=== PATIENT | female | born 1975 | race African-American/Black ===

== ENCOUNTER 2020-04-11 17:28 | Outpatient (CLI) | payer OTHER, SELFPAY ==
--- NOTE | ~2020-04-11 | MM_ITS ---
EXAMINATION: MM screening [facility] w sung HISTORY: Screening TECHNIQUE: Craniocaudal and mediolateral oblique 3-D tomosynthesis images were obtained and synthetic 2-D images were generated. CAD analysis was submitted and interpreted. COMPARISON: Comparison to multiple prior studies sequentially, with oldest reviewed study dated 01/20. BREAST PARENCHYMAL COMPOSITION: The breasts are heterogeneously dense, which may obscure small masses . FINDINGS: There is no evidence of suspicious mass, calcification, or architectural distortion to sugg est malignancy in either breast. There has been no suspicious interval change. IMPRESSION: 1. No mammographic evidence of malignancy. 2. Recommend routine screening mammography in one year. BI-RADS Category 1: Negative Reviewed, dictated and finalized at location A. GED SERVICES CONSULTANT
== END 2020-04-11 17:29 | disposition home or self-care (01) ==
PROVIDERS: PCP Internal Medicine; Visit Provider Obstetrics & Gynecology
DX: Z12.31 Encounter for screening mammogram for malignant neoplasm of breast (principal)
CPT/HCPCS: 77063; 77067

== ENCOUNTER 2021-11-13 15:06 | Outpatient (CLI) | payer OTHER, SELFPAY ==
--- NOTE | ~2021-11-13 | MM_ITS ---
EXAMINATION: MM screening [facility] BI w sung HISTORY: Screening mammogram TECHNIQUE: Craniocaudal and mediolateral oblique 3-D tomosynthesis images were obtained and synthetic 2-D images were generated. CAD analysis was submitted and interpreted. COMPARISON: 04/11/2020, 01/24/2019, 01/20/2018 BREAST PARENCHYMAL COMPOSITION: There are scattered areas of fibroglandular density. FINDINGS: There is no suspicious mass, calcification, or architectural distortion to suggest malignan cy in either breast. There has been no suspicious interval change. IMPRESSION: 1. No mammographic evidence of malignancy. 2. Recommend routine screening mammography in one year. BI-RADS Category 1: Negative Reviewed, dictated and finalized at location A.
== END 2021-11-13 15:07 | disposition home or self-care (01) ==
PROVIDERS: PCP Internal Medicine; Visit Provider Obstetrics & Gynecology
DX: Z12.31 Encounter for screening mammogram for malignant neoplasm of breast (principal)
CPT/HCPCS: 77063; 77067

== ENCOUNTER 2022-06-16 16:41 | Outpatient (CLI) | payer OTHER, SELFPAY ==
--- NOTE | ~2022-06-16 | XR_ITS ---
EXAMINATION: XR thoracic spine 3V DATE: 06/16/2022 18:10 INDICATION: Chronic back pain TECHNIQUE: AP, lateral and lateral swimmer's views of the thoracic spine were obtained. COMPARISON: None. FINDINGS: There are 11 thoracic type vertebral bodies. Bone alignment is normal. There is no fracture . The vertebral body heights are maintained. There is mild loss of intervertebral disc space height i n the midthoracic spine. Small degenerative osteophytes project from the anterior endplates of multip le vertebral bodies. IMPRESSION: 1. Mild thoracic spondylosis without acute osseous findings. Reviewed, dictated and finalized at location B. DIENE CONVERTER HELPER
--- NOTE | ~2022-06-16 | XR_ITS ---
EXAMINATION:XR cervical spine 4-5V DATE: 06/16/2022 18:10 INDICATION: Neck pain TECHNIQUE: AP, lateral, lateral swimmers and odontoid views of the cervical spine are provided. COMPARISON: None FINDINGS: Alignment is normal. The odontoid is intact. No fracture is identified. Vertebral body heig hts and disk spaces are normal. Prevertebral soft tissues are normal. Small degenerative osteophytes project from the anterior endplates of multiple vertebral bodies. IMPRESSION: 1. Mild cervical spondylosis without acute findings. Reviewed, dictated and finalized at location B. INSPECTOR
--- NOTE | ~2022-06-16 | DEXA_ITS ---
Bone Density Report Name: MARLEE SKELTON Age: 46 Sex: Female Ethnicity: White Date of : 1975 Indication: postmenopausal; inflammatory bowel disease; history of glucocorticoids; asthma or emphysema; hysterectomy; secondary osteoporosis; Referring Provider: UNKNOWN, UNKNOWN Study: Bone densitometry was performed. Exam Date: June 16, 2022 Accession number: [id number] Bone Density: Region BMD T-score Z-score Classification AP Spine(L1-L4) 0.948 -0.9 -0.5 Normal Femoral Neck (Left) 0.761 -0.8 -0.4 Normal Total Hip (Left) 0.857 -0.7 -0.4 Normal Femoral Neck (Right) 0.806 -0.4 0.0 Normal Total Hip (Right) 0.893 -0.4 -0.1 Normal Total Hip Mean 0.875 -0.6 -0.3 Normal World Health Organization criteria for BMD impression classify patients as: Normal (T-score at or above -1.0), Osteopenia (T-score between -1.0 and -2.5), or Osteoporosis (T-score at or below -2.5). 10-year Fracture Risk: FRAX not reported because: All T-scores for Spine Total, Hip Total, Femoral Neck at or above -1.0 Clinical Information Provided by Patient: Has taken Glucocorticoids Has secondary osteoporosis Has used the following medications: Vitamin D, Calcium Has the following medical conditions: Asthma or Emphysema, Inflammatory bowel diseases, Hysterectomy Patient maximum height was 69.5 Menopause Age: 44 Onset of menses at age 13 Number of children 0 Impression: The patient has normal bone mass. The patient has risk factors, including: history of glucocorticoid therapy. Discussion: BONE DENSITY IS ABOVE THE MINIMUM DESIRABLE LEVEL AT ALL SKELETAL SITES TESTED. This patient?s bone mineral density is above the minimum desirable level (T-score -1.0 or better) at all sites measured. The patient should follow a healthful lifestyle (good nutrition with adequate calcium and vitamin D, and appropriate weight-bearing exercise). Follow-Up: Consider repeating this study in 5 years or sooner if there is some new clinical indication. Reported by: LEANDER on 06/16/2022 5:22:00 PM. Reviewed, dictated and finalized at location AGraham NIETO
--- NOTE | ~2022-06-16 | XR_ITS ---
EXAMINATION: XR lumbar spine min 4V DATE: 06/16/2022 18:10 INDICATION: Low back pain TECHNIQUE: Anteroposterior, lateral, and bilateral oblique views of the lumbar spine, and cone-down l ateral view of the lumbosacral junction were obtained. COMPARISON: None. FINDINGS: Bone alignment is normal. There is no fracture. The vertebral body heights are maintained. There is mild loss of intervertebral disc space height in the lower lumbar spine. Small degenerative osteophytes project from the anterior endplates of multiple vertebral bodies. There is mild facet carli nt osteoarthritis of the lower lumbar spine. An ostomy is noted in the right mid abdomen. IMPRESSION: 1. Mild lumbar spondylosis without acute findings. Reviewed, dictated and finalized at location B. ING SAW OPERATOR
== END 2022-06-16 16:42 | disposition home or self-care (01) ==
PROVIDERS: PCP Internal Medicine
DX: Z79.899 Other long term (current) drug therapy (principal); M89.8X9 Other specified disorders of bone, unspecified site; M47.894 Other spondylosis, thoracic region; M47.896 Other spondylosis, lumbar region; M47.892 Other spondylosis, cervical region
CPT/HCPCS: 72050; 72072; 72110; 77080

== ENCOUNTER 2024-08-31 15:33 | Outpatient (CLI) | payer OTHER, SELFPAY ==
--- NOTE | ~2024-08-31 | MM_ITS ---
EXAMINATION: MM screening bibiana BI w sung HISTORY: Screening TECHNIQUE: Craniocaudal and mediolateral oblique 3-D tomosynthesis images were obtained and synthetic 2-D images were generated. CAD analysis was submitted and interpreted. COMPARISON: 11/13/2021 and dating back to 01/20/2018 BREAST PARENCHYMAL COMPOSITION: There are scattered areas of fibroglandular density. FINDINGS: Punctate calcifications are detected bilaterally, stable and benign in appearance. Redemonstration of a well-circumscribed asymmetry within the upper outer right breast, stable and fuad ign in appearance. Stable parenchymal pattern without suspicious microcalcifications, architectural distortion, discrete masses or significant additional asymmetry. IMPRESSION: 1. No mammographic evidence of malignancy. 2. Recommend routine screening mammography in one year. BI-RADS Category 2: Benign finding(s). Reviewed, dictated and finalized at location A.
--- OUTSIDE RECORDS SUMMARY | 2024-08-31 16:17 | XMS_ITS | Clinical Summary ---
Author Organization [facility] Address [address] [place] [address] Care Team Providers Care Hoop Coiling Machine Operator Name Role Phone Enrique Muhammad MD Primary Care Provider [phone] Allergies Active Allergy Reactions Criticality Noted Date Comments Iodinated Contrast Media Hives 11/03/2017 Medications ondansetron 4 MG disintegrating tablet Take 4 mg by mouth every 8 (eight) hours as needed for Nausea. Active dicyclomine 10 MG capsule Take 10 mg by mouth 4 (four) times daily before meals and nightly. Active vitamin D3, cholecalciferol, (CHOLECALCIFEROL) 400 units tablet Take 400 Units by mouth daily. Active albuterol sulfate HFA 108 (90 Base) MCG/ACT inhaler Inhale 2 puffs into the lungs every 6 (six) hours as needed for Wheezing. Active ferrous sulfate, 65 mg elemental, 325 (65 FE) MG tablet Take 325 mg by mouth 2 (two) times daily. Active norethindrone 5 MG tablet Take 5 mg by mouth daily. Active calcium carb-cholecalcifero l 600-400 MG-UNIT Tab tablet 1 tablet daily. Active potassium chloride 10 MEQ Tab CR tablet Take 20 mEq by mouth daily. Active metoprolol succinate 25 MG 24 hr tablet Take 25 mg by mouth daily. Active acetaminophen 325 MG tablet Take by mouth every 4 (four) hours as needed for Pain. Active Active Problems Problem Noted Date Diagnosed Date Crohn disease ([facility]) 11/02/2017 Social History Tobacco Use Types Packs/Day Years Used Date Smoking Tobacco: Never Smokeless Tobacco: Never Comments Unknown Sex and Gender Information Value Date Recorded Sex Assigned at Not on file Legal Sex Female 8:44 AM CDT Gender Identity Not on file Sexual Orientation Not on file Last Filed Vital Signs Vital Sign Reading Time Taken Comments Blood Pressure 123/85 12/28/2017 11:00 AM CDT Pulse 67 12/28/2017 11:00 AM CDT Temperature 37.1 C (98.8 F) 12/28/2017 8:51 AM CDT Respiratory Rate 18 12/28/2017 11:00 AM CDT Oxygen Saturation 100% 12/28/2017 11:00 AM CDT Inhaled Oxygen Concentration - - Weight 88 kg (194 lb) 12/28/2017 8:51 AM CDT Height 175.3 cm (5' 9 ) 12/28/2017 8:51 AM CDT Body Mass Index 28.65 12/28/2017 8:51 AM CDT Plan of Treatment Health Maintenance Due Date Last Done Comments Cervical Cancer Screening Pa p Smear (Age 30 to 64) Every 3 Years 1975 Colorectal Cancer Screening Colonoscopy (10 Years) 1975 Annual Physical 1980 Hepatitis C 10/19/1995 DTaP, Tdap and Td Vaccines ( 1 - Tdap) 1996 Hepatitis B Vaccines (1 of 3 - 19+ 3-dose series) 1996 Cervical Cancer Screening Pa p with HPV Testing (Age 30 to 64) Every 5 Years 10/19/2007 Cervical Cancer Screening with HPV 10/19/2007 Mammogram Screening 2017 COVID-19 Vaccine (2023-2 5 season) 2024 Influenza Adult (#1) 2024 Pneumococcal Vaccine: Pediat rics (0 to 5 Years) and At-Risk Patients (6 to 64 Years) Aged Out 11/03/2017 No longer eligi ble based on patient's age to complete this topic Meningococcal B Vaccine Aged Out No l onger eligible based on patient's age to complete this topic Meningococcal Vaccine Aged Out No ziggy suresh eligible based on patient's age to complete this topic RSV Immunizations Under 20 Months Aged Out No longer eligible based on patient's age to complete this topic [facility] Care Teams Hoop Coiling Machine Operator Relationship Specialty Start Date End Date Enrique Muhammad MD [address] [place] [address] PCP - General INTERNAL MEDICINE 11/03/17
--- OUTSIDE RECORDS SUMMARY | 2024-08-31 16:17 | XMS_ITS | Encounter Summary ---
Author Organization [facility] Address [address] [place] [address] Care Team Providers Care Retail Event Coordinator Name Role Phone Ijeoma Faria James MULTIFOCAL BUTTON GRINDER-COMMUNITY COORDINATOR FOR [employer] Primary Care Provider Jethro Curiel MD Unavailable Kelly Ramírez MD Unavailable [phone] Encounter Details Date Type Department Care Team (Latest Contact Info) Description 08/30/2024 Travel Social History Tobacco Use Types Packs/Day Years Used Date Smoking Tobacco: Never Smokeless Tobacco: Never Alcohol Use Standard Drinks/Week Comments No 0 (1 standard drink = 0.6 oz pur e alcohol) AUDIT-C Answer Date Recorded Q1: How often do you have a drink containing alcohol? Never 01/19/2024 Q2: How many drinks containi ng alcohol do you have on a typical day when you are drinking? Patient does not drink Q3: How often do you have si x or more drinks on one occasion? Never 01/19/2024 Overall Financial Resource Strain (CARDIA) Answe r Date Recorded How hard is it for you to pa y for the very basics like food, housing, medical care, and heating? Not hard at all 01/19/2024 PHQ-2 Answer Date Recorded Patient Health Questionnaire-2 Score 0 05/05/2024 [facility] - Occupational Stress Questionnaire Answer Date Recorded Do you feel stress - tense, restless, nervous, or anxious, or unable to sleep at night because your mind is troubled all the time - these days? Not at all 01/19/2024 Hunger Vital Sign Answer Date Recorded Within the past 12 months, y ou worried that your food would run out before you got the money to buy more. Never true 01/19/20 24 Within the past 12 months, t he food you bought just didn't last and you didn't have money to get more. Never true 01/19/2024 PRAPARE - Transportation Answer Date Re corded In the past 12 months, has l ack of transportation kept you from medical appointments or from getting medications? No 01/05 In the past 12 months, has l ack of transportation kept you from meetings, work, or from getting things needed for daily living? No 01/19/2024 Housing Stability Vital Sign Answer Alcides e Recorded In the last 12 months, was t here a time when you were not able to pay the mortgage or rent on time? No 01/19/2024 In the last 12 months, how many places have you lived? 1 01/19/2024 In the last 12 months, was t here a time when you did not have a steady place to sleep or slept in a fci (including now)? No 01/19/2024 Sex and Gender Information Value Date Recorded Sex Assigned at Not on file Gender Identity Not on file Sexual Orientation Not on file documented as of this encounter Functional Status Functional Status Response Date of Assess ment Is person deaf or have serious hearing difficult y? No 01/19/2024 Is person blind or have serious difficulty seein g? No 01/19/2024 Does person have serious dif ficulty walking/climbing stairs? No 01/19/2024 Does person have difficulty dressing/bathing? No 01/19/2024 Does person have difficulty doing errands alone? No 01/19/2024 Cognitive Status Response Date of Assessm ent Does person have difficulty concentrating/remembering/making decisions? No 01/19/2024 documented as of this encounter Plan of Treatment Upcoming Encounters Date Type Department Care Team (Late st Contact Info) Description 09/01/2024 3:00 PM CDT Office Visit Transitional Care at [address] [address] 09/07/2024 9:00 AM CDT Office Visit [facility] - Internal Medicine [address] [place] [phone] Ijeoma Faria, MULTIFOCAL BUTTON GRINDER-COMMUNITY COORDINATOR FOR [employer] [address] [facility] [address] [place] [phone] 11/16/2024 3:30 PM CDT Office Visit [facility] - GI [address] [facility] [place] [place] [phone] Prasanth Diaz MD [address] [place] [phone] 04/04/2025 11:30 AM CDT Office Visit [facility] - Urology [address] [place] [phone] Hemalatha Golden, MULTIFOCAL BUTTON GRINDER-COMMUNITY COORDINATOR [employer] [address] [place] [address] [place] [address] documented as of this encounter Goals Goal Patient Goal Type Associated Problems Recent Progress Patient-Stated? Author Safety General On track( 2:45 PM CHAUFFEUR MOTORBUS) Leia Dodge, MEAGAN Note: Expected end date: Ongoing Interventions: Your nurse will assess your risk for falls/injury each visit Use appropriate and safe transfer methods Medication Management General On track( 2:45 PM CHAUFFEUR MOTORBUS) Leia Dodge, MEAGAN Note: Expected end date: Ongoing Interventions: Take all medications as prescribed Let your doctor know right away about any changes in your medications documented as of this encounter Visit Diagnoses Not on filedocumented in this encounter Care Teams Retail Event Coordinator Relationship Specialty Start Date End Date Ijeoma Faria, MULTIFOCAL BUTTON GRINDER-COMMUNITY COORDINATOR [employer] [address] [facility] [address] [place] [address] PCP - General Nurse Practitioner 08/04/22 Jethro Curiel MD [address] [facility] [address] [place] [address] Obstetrics and Gynecology 03/09/24 Kelly Ramírez MD [address] [facility] [address] [place] [address] Surgeon General Surgery 03/09/24 documented as of this encounter
--- OUTSIDE RECORDS SUMMARY | 2024-08-31 16:17 | XMS_ITS | Encounter Summary ---
Author Organization [facility] Address [address] [place] [address] Care Team Providers Care Network Operations Center Engineer Name Role Phone Enrique Muhammad MD Primary Care Provider Unava Ijeoma Covarrubias TRAUMA DIRECTOR-PAVING CONTRACTOR Primary Care Provider Jethro Curiel MD Unavailable Kelly Ramírez MD Unavailable Encounter Details Date Type Department Care Team (Late Contact Info) Description 01/09/2021 Telephone [facility] General Surgery [address] [place] [address] Kelly Ramírez MD [address] [address] Social History Tobacco Use Types Packs/Day Years Used Date Smoking Tobacco: Never Smokeless Tobacco: Never Alcohol Use Standard Drinks/Week Comments No 0 (1 standard drink = 0.6 oz pur e alcohol) Sex and Gender Information Value Date Recorded Sex Assigned at Not on file Gender Identity Not on file Sexual Orientation Not on file COVID-19 Exposure Response Date Recorded In the last month, have you been in contact with someone who was confirmed or suspected to have Coronavirus / COVID-19? No / Unsure 01/01/2021 9:51 AM CDT documented as of this encounter Plan of Treatment Upcoming Encounters Date Type Department Care Team ([facility] Contact Info) Description 09/01/2024 3:00 PM CDT Office Visit Transitional Care at [facility] [address] [place] [address] 09/07/2024 9:00 AM CDT Office Visit [facility] - Internal Medicine [address] [place] [phone] Ijeoma Faria, TRAUMA DIRECTOR-PAVING CONTRACTOR [address] [facility] [address] [place] [phone] 11/16/2024 3:30 PM CDT Office Visit [facility] - GI [address] [facility] [place] [phone] Prasanth Diaz MD [address] [place] [phone] 04/04/2025 11:30 AM CDT Office Visit [facility] - Urology [address] [place] [phone] Hemalatha Golden, TRAUMA DIRECTOR-PAVING CONTRACTOR [address] [facility] DEPT [place] [address] documented as of this encounter Goals Goal Patient Goal Type Associated Problems Recent Progress Patient-Stated? Author Safety General On track( 024 2:45 PM SNOWMOBILE MECHANIC) Leia Dodge RN Note: Expected end date: Ongoing Interventions: Your nurse will assess your risk for falls/injury each visit Use appropriate and safe transfer methods Medication Management General On track( 024 2:45 PM SNOWMOBILE MECHANIC) Leia Dodge RN Note: Expected end date: Ongoing Interventions: Take all medications as prescribed Let your doctor know right away about any changes in your medications documented as of this encounter Visit Diagnoses Not on filedocumented in this encounter Care Teams Network Operations Center Engineer Relationship Specialty Start Date End Date Enrique Muhammad MD PCP - General 01/20/17 08/03/22 Ijeoma Faria, TRAUMA DIRECTOR-PAVING CONTRACTOR [address] [place] [address] [phone] PCP - General Nurse Practitioner 08/04/22 Jethro Curiel MD [address] [employer] [address] [place] [address] Obstetrics and Gynecology 03/09/24 Kelly Ramírez MD [address] [employer] [facility] [address] [place] [address] Surgeon General Surgery 03/09/24 documented as of this encounter
--- OUTSIDE RECORDS SUMMARY | 2024-08-31 16:17 | XMS_ITS | Clinical Summary ---
Author Organization [facility] Address [address] [place] [address] Care Team Providers Care Optical Manufacturing Technician Name Role Phone GianaIjeoma James DEALER SALES REP-ASSOCIATE [employer] Primary Care Provider Jethro Curiel MD Unavailable Kelly Ramírez MD Unavailable [phone] Source Comments [facility],non-owned Affiliates and Associated Physician Practices is amultiple site organization consisting of ambulatory clinics and hospital sitesin [place], [place], [place] and [place]. This disclosure is being madepursuant to the Care Everywhere program and may not contain all information available regarding this patient. Last updated 18.[facility] Allergies Active Allergy Reactions Criticality Noted Date Comments Contrast-Iodinated Agents For Ct/Other Skin Reactions,Itching High 07/24/2017 Pt had severe hives and itching when given contrast. Pt states she has been premedicated for every scan since that reaction without further incident. sms (CT) Azathioprine Other Medium 08/26/2018 Pancreatitis Povidone Iodine Itching Low 01/03/2017 Tolerated with pretreatment of benedryl on 01/02/17 at OSH. Medications * Be aware that medications may not be up to date on this document. Alwaysverify current medications with the patient. Medication Sig Dispensed Refills Start Date End Date Status acetaminophen (TYLENOL) 325 MG tablet Take 2 (two) tablets by mouth every 4 hours as needed for Fever or Pain Maximum allowable Acetaminophen amount = 4 Grams (4000 mg) / 24 hours. 100 tablet 01/23/2021 Active folic acid (Folvite) 1 MG tabletIndications:I ntestinal malabsorption, unspecified type (HCC),Crohn's disease of colon with complication (HCC),Crohn's disease of large intestine with fistula (HCC) Take 1 (one) tablet by mouth once daily 90 tablet 3 07/19/2023 Active Calcium Carb-Cholecalcifero l (Calcium/Vitamin D) 600-400 MG-UNIT TABS TAKE ONE TABLET BY MOUTH TWICE DAILY FOR VITAMIN DEFICIANCY 60 tablet 11 10/13/2023 Active nortriptyline (Pamelor) 25 MG capsuleIndications: Crohn's disease of large intestine with abscess (HCC),Ulcerative colitis without complications, unspecified location (HCC) TAKE ONE CAPSULE BY MOUTH EVERY NIGHT AT BEDTIME 30 capsule 5 02/03/2024 Active ferrous sulfate (FeroSul) 325 (65 FE) MG tabletIndications:B one pain Take 1 (one) tablet by mouth daily with breakfast 30 tablet 5 02/21/2024 Active pantoprazole EC (Protonix) 40 MG tabletIndications:H eartburn Take 1 (one) tablet by mouth once daily 90 tablet 3 02/21/2024 Active methotrexate 2.5 MG tablet Take 6 (six) tablets by mouth every 7 days 24 tablet 3 03/01/2024 Active albuterol HFA (Proventil; Ventolin; Proair) 108 (90 Base) MCG/ACT inhalerIndications: Mild intermittent asthma without complication ([facility]) Inhale 2 puffs by mouth every 4 hours as needed for shortness of breath or wheezing 18 g 3 03/20/2024 Active atorvastatin (Lipitor) 20 MG tabletIndications:M ixed hyperlipidemia Take 1 (one) tablet by mouth once daily 90 tablet 4 04/05/2024 Active potassium chloride ER (Klor-Con M) 20 MEQ tabletIndications:P ericarditis, unspecified chronicity, unspecified type (HCC) TAKE ONE TABLET BY MOUTH TWICE DAILY EVERY MORNING & EVENING YOU CAN DISSOLVE TABLET IN WATER AND DRINK 60 tablet 5 04/07/2024 Active cyanocobalamin (Vitamin B-12) 1000 MCG tabletIndications:V itamin B12 deficiency Take 1 (one) tablet by mouth every 2 days 45 tablet 5 04/21/2024 Active adalimumab (Humira, 2 Pen,) 40 MG/0.4ML injectionIndication s:Crohn's Disease Inject 0.4 mL subcutaneously every 7 days Reasons: Crohn's Disease 4 kit 6 06/02/2024 Active tamsulosin (Flomax) 0.4 MG capsule Take 1 (one) capsule by mouth once daily At the same time every day after a meal. 90 capsule 4 06/29/2024 Active montelukast (Singulair) 10 MG tablet TAKE ONE TABLET BY MOUTH EVERY NIGHT AT BEDTIME FOR BREATHING 90 tablet 07/10/2024 Active metoprolol tartrate IR (Lopressor) 25 MG tabletIndications:P ericarditis, unspecified chronicity, unspecified type (HCC) TAKE ONE TABLET DAILY FOR BLOOD PRESSURE 30 tablet 1 07/14/2024 Active metoprolol succinate XL 24hr (Toprol XL) 50 MG tablet Take 1 (one) tablet by mouth once daily for blood pressure 08/17/2024 Active Active Problems Problem Noted Date Diagnosed Date Crohn's disease of large intestine with fistula 06/10/2018 Multiple benign melanocytic nevi of upper and lower extremities and trunk 04/15/2018 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 Uncomplicated asthma 09/16/2017 Crohn's disease of large intestine with abscess 05/13/2017 Peritoneal abscess 01/14/2017 Ulcerative colitis without complications 017 Iridocyclitis 01/14/2017 Other specified bacterial ag ents as the cause of diseases classified elsewhere 01/14/2017 Other acute postprocedural pain 01/14/2017 Other female intestinal-genital tract fistulae 0 01/14/2017 Acute embolism and thrombosis of vein 01/06/2017 Clostridium difficile infection 01/04/2017 07/20/2023 Fistula, colovaginal 01/04/2017 07/20/2023 Thrombus 01/04/2017 07/20/2023 Acute pancreatitis without infection or necrosis 01/03/2017 Overview (09/06/2017): History of drug-induced pancreatitis Abscess of intestine 01/03/2017 Disease of pericardium 01/03/2017 Encounters Date Type Department Care Team Description 08/31/2024 Telephone Transitional Care at [address] [phone] Alba Benjamin MA Confirmation 08/30/2024 11:30 AM CDT Office Visit [facility] - Urology [address] [place] [address] Hemalatha Golden, DEALER SALES REP-ASSOCIATE [employer] Incomplete emptying of bladder (Primary Dx) 08/30/2024 Travel 08/25/2024 Telephone Transitional Care at [address] [phone] Alba Benjamin MA Reschedule Appointment 08/25/2024 Travel 08/25/2024 Telephone Transitional Care at [address] [phone] Alba Benjamin MA Reminder Call 08/18/2024 Travel 08/18/2024 Telephone Transitional Care at [address] [phone] Brigitte Adams, supervisor stock ranch 08/18/2024 Orders Only [facility] [address] [facility] [place] [address] Maricel Noriega, MEAGAN Crohn's disease of large intestine with fistula 08/10/2024 12:35 PM SECURITY INTERN - 08/10/2024 11:59 PM SECURITY INTERN Hospital Encounter [facility] MRI [address] [place] [address] Prasanth Diaz MD Discharge Disposition: Home or Self Care 07/13/2024 Refill [facility] - Internal Medicine [facility] [address], [facility] [address] [place] [phone] Ijeoma Faria, DEALER SALES REP-ASSOCIATE [employer] Refill Request 07/10/2024 Refill [facility] - Internal Medicine [facility] [address], [facility] [address] [place] [phone] Ijeoma Faria, DEALER SALES REP-ASSOCIATE [employer] Refill Request 06/29/2024 2:00 PM SECURITY INTERN Office Visit [facility] [address] [place] [address] Hemalatha Golden, DEALER SALES REP-ASSOCIATE [employer] Incomplete emptying of bladder (Primary Dx); Urinary retention; Microscopic hematuria 06/29/2024 Travel 06/08/2024 12:00 PM SECURITY INTERN Office Visit [facility] - General Surgery [address] [place] [address], [place] [address] Kelly Ramírez MD Urinary retention (Primary Dx) 06/08/2024 Travel 06/02/2024 Refill [facility] - GI [address] [facility] [place] [address] Donald Cooley, SALES RECRUITMENT SPECIALIST REFILL from Last 3 Months Immunizations Name Administration Dates Next Due [employer] primary monoval ent 12+ yr 0.3mL Purple cap 04/18/2021,09/06/2020,08/18/2020 DTaP VACCINE IM (6wk-6yrs) 12/22/2018 HEP B VACCINE, ADULT 3 DOSE 12/17/2022, 3,06/11/2022 INFLUENZA VACCINE 04/22/2023 INFLUENZA VACCINE, CELL CULT URE, QUADR. (FLUCELVAX QUADRIVALENT; 6MO+) (CCIIV4) 04/22/2023,04/24/2020 INFLUENZA VACCINE, QUADR. (A FLURIA, FLUZONE QUADRIVALENT; 6MO+) (IIV4) 03/31/2022 INFLUENZA VACCINE, TRIV. (FL UZONE; FLULAVAL; FLUARIX; AFLURIA TRIVALENT; 6MO+), 0.5 ML (IIV3) 03/09/2024 PNEUMOCOCCAL PCV20 CONJ VAC IM 10/22/2022 PNEUMOCOCCAL PPSV23 02/23/2018 Pneumococcal Pcv13 Conj 11/03/2017 Zoster Hzv Vacc Recombinant Inj Im 08/20/2022, Family History Medical History Relation Name Comments None Known Brother 1/2 brother Status: Alive Diabetes Father Status: Alive Cancer - Pancreatic Maternal Aunt Ulcerative Colitis Maternal Aunt Recurren t C Diff; Status: Alive Cancer - Skin, Melanoma Mother Hypertension Mother Seizures Mother Status: Alive Cancer - Breast Paternal Aunt Ulcerative Colitis Sister confined to rectum; Status: Alive Asthma Neg Hx CVA Neg Hx Cancer - Other Neg Hx Cancer - Skin, Non Melanoma Neg Hx Eczema Neg Hx Hemophilia Neg Hx Psoriasis Neg Hx Relation Name Status Comments Brother 1/2 brother Father Maternal Aunt Mother Paternal Aunt Sister Social History Tobacco Use Types Packs/Day Years Used Date Smoking Tobacco: Never Smokeless Tobacco: Never Tobacco Cessation:Counseling Given: No Alcohol Use Standard Drinks/Week Comments No 0 [...] Recorded Patient Health Questionnaire-2 Score 0 05/05/2024 [facility] of Occupat ional Health - Occupational Stress [...] place to sleep or slept in a mcc (including now)? No 01/19/2024 Sex and Gender Information Value Date Recorded Sex Assigned at Not on file Gender Identity Not on file Sexual Orientation Not on file Last Filed Vital Signs Vital Sign Reading Time Taken Comments Blood Pressure 120/81 08/30/2024 11:21 AM CDT Pulse 94 08/30/2024 11:21 AM CDT Temperature 36.6 C (97.9 F) 08/30/2024 11:21 AM CDT Respiratory Rate 17 08/30/2024 11:21 AM CDT Oxygen Saturation 94% 08/30/2024 11:21 AM CDT Inhaled Oxygen Concentration - - Weight 111.1 kg (245 lb) 08/30/2024 11:21 AM CDT Height 175.3 cm (5' 9 ) 08/30/2024 11:21 AM CDT Body Mass Index 36.18 08/30/2024 11:21 AM CDT Plan of Treatment Upcoming Encounters Date Type Department Care Team (Late st Contact Info) Description 09/01/2024 3:00 PM CDT Office Visit Transitional Care at [address] [phone] 09/07/2024 9:00 AM CDT Office Visit [facility] - Internal Medicine [address], [address] [phone] Ijeoma Faria, DEALER SALES REP-ASSOCIATE [employer] [address] [phone] 11/16/2024 3:30 PM CDT Office Visit [facility] - GI [address] [facility] [place] [phone] Prasanth Diaz MD [address] [place] [address] 04/04/2025 11:30 AM CDT Office Visit [facility] - Urology [address] [facility] [address] [place] [address] Hemalatha Golden, DEALER SALES REP-ASSOCIATE [employer] [address] [facility] [place] [address] Health Maintenance Due Date Last Done Comments MAMMOGRAM 1977 HEPATITIS C SCREENING 10/14/1995 COVID-19 VACCINE ( season) 2024 05/07/2023, 03/18/2022, 04/18/2021, Additional history exists DEPRESSION SCREENING 06/07/2024 11/17/2023, 06/11/2022, 02/05/2022 SCREENING FOR DIABETES 05/05/2027 , 03/11/2024, 01/23/2024, Additional history exists ZOSTER VACCINE (2 of 2) 10/19/2027 08/20/2022, 06/20 PNEUMOCOCCAL VACCINE (3 of 3 - PCV20 or PCV21) 10/23/2027 10/22/2022, 02/23/2018, 11/03/2017 DTAP/TDAP/TD VACCINES (2 - Tdap) 12/22/2028 12/22/2018 HIV SCREENING Completed 11/25/2020 BONE DENSITY TESTING Completed 06/16/2022 (Done Outside Per Report) HEPATITIS B VACCINE Completed 12/17/2022, 07/09/2022, 06/11/2022 INFLUENZA VACCINE Completed 03/09/2024, , 04/22/2023, Additional history exists HIB VACCINE Aged Out No longer eligi ble based on patient's age to complete this topic HPV VACCINE Aged Out No longer eligi ble based on patient's age to complete this topic MENINGOCOCCAL (Group B) VACCINE SHARED DECISION-MAKING Aged Out No longer eligible based on patient's age to complete this topic MENINGOCOCCAL GROUPS A/C/Y/W VACCINE Aged Out No longer eligible based on patient's age to complete this topic Goals Goal Patient Goal Type Associated Problems Recent Progress Patient-Stated? Author Safety General On track(12/12/2 024 2:45 PM SECURITY INTERN) No Leia Kurtz, RN Note: Expected end date: Ongoing Interventions: Your nurse will assess your risk for falls/injury each visit Use appropriate and safe transfer methods Medication Management General On track( 2:45 PM SECURITY INTERN) No Leia Kurtz, RN Note: Expected end date: Ongoing Interventions: Take all medications as prescribed Let your doctor know right away about any changes in your medications Procedures Procedure Name Priority Date/Time Associated Diagnosis Comments ND MSR PVR U&/BLADD CAPCTY US NON Routine 08/30/2024 11:32 AM CDT Incomplete emptying of bladder MRI ENTEROGRAPHY Routine 08/10/2024 4:17 PM SECURITY INTERN Crohn's disease of large intestine without complication CULTURE URINE Routine 07/06/2024 3:15 PM SECURITY INTERN ND MSR PVR U&/BLADD CAPCTY US NON Routine 06/29/2024 2:25 PM SECURITY INTERN Urinary retention URINALYSIS AUTO - POINT OF CARE (AMB) [facility] Routine 06/29/2024 2:23 PM SECURITY INTERN Urinary retention URINALYSIS W/MICROSCOPIC NO CULTURE 06/29/2024 Incomplete emptying of bladder CULTURE URINE 06/29/2024 Incomplete emptying of bladder COMPREHENSIVE METABOLIC PANEL Routine 05/05/2024 11:38 AM SECURITY INTERN Crohn's disease of large intestine with fistula HIV-1 HIV-2 ANTIBODY + HIV P24 AG PANEL STAT 11/25/2020 5:43 AM CDT from Last 3 Months or Most Recently Relevant to Health Maintenance Results * ND MSR PVR U&/BLADD CAPCTY US NON (08/30/2024 11:32 AM CDT) Narrative Hemalatha Golden, JHON-ASSOCIATE [employer] - 08/30/2024 11:32 AM CDT Hemalatha GoldenJHON-ED 08/30/2024 12:28 PM Bladder Scan performed on 08/30/2024: Results showinml Hemalatha Golden JHON-ASSOCIATE [employer] PROCEDURE/MINOR SURGICAL ORDERABLES * MRI Enterography (08/10/2024 4:17 PM SECURITY INTERN) Anatomical Region Laterality Modality Abdomen Magnetic Resonan ce, Magnetic Resonance 08/11/2024 7:50 AM SECURITY INTERN Impressions 08/11/2024 11:13 AM SECURITY INTERN Impression: 1.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 No imaging signs of active small bowel inflammation. 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 The report was drafted by Alfonso Cruz MD (residential green building designer) I, Ace Hernández MD have personally reviewed and interpreted this examination/study. > Interpreting Provider: Ace Hernández MD on 08/11/2024 11:13 AM Narrative 08/11/2024 11:13 AM SECURITY INTERN PROCEDURE: MRI ENTEROGRAPHY, DATE/TIME OF EXAM: 08/10/2024 4:17 PM, LOCATION [facility] INDICATION: K50.10: Crohn's disease of large intestine without complication (HCC) ADDITIONAL CLINICAL INFORMATION: Ordering Provider Reason For Exam: Crohn's disease, evaluate for small bowel inflammation Technologist Note: Additional: COMPARISON: CT chest abdomen pelvis from 01/20/2021. TECHNIQUE: MRI of the abdomen and pelvis was performed prior to and following the uneventful administration of 20 mL Multihance intravenous gadolinium contrast according to an enterography protocol. The patient drank Citra Select prior to the study to distend the small bowel. Findings: Lower Chest: Normal. Gastrointestinal The patient is status post total proctocolectomy with creation of end ileostomy. 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 Small bowel distention: Satisfactory with intraluminal fluid to the level of the distal bowel. Obstruction: Nondilated without evidence of obstruction. Enhancement: No enhancing lesion of the bowel. Bowel wall: No bowel wall thickening or abnormal enhancement. Terminal ileum: Normal. Other: No bowel fistula, stricture, or abscess. Hepatobiliary system Liver: Normal size with smooth surface contour. No enhancing lesions. Steatosis: There is mild diffuse hepatic steatosis. Spleen: Normal. Splenic vein is occluded. There are peripancreatic collateral veins, similar to prior CT chest abdomen pelvis from 01/20/2021 Gallbladder and bile ducts Gallbladder: Normal. Bile ducts: Nondilated. Retroperitoneum Pancreas: Normal. Adrenals: Normal. Kidneys: Scattered renal cysts bilaterally. Lymph nodes: No lymphadenopathy. Peritoneum: No free intraperitoneal fluid. Pelvic structures: The bladder is distended with fluid and appears normal. Uterus is absent. No free pelvic fluid is identified. Procedure Note Ace Hernández MD - 08/11/2024 PROCEDURE: MRI ENTEROGRAPHY, DATE/TIME OF EXAM: 08/10/2024 4:17 PM, LOCATION [facility] INDICATION: K50.10: Crohn's disease of large intestine without complication (HCC) ADDITIONAL CLINICAL INFORMATION: Ordering Provider Reason For Exam: Crohn's disease, evaluate for small bowel inflammation Technologist Note: Additional: COMPARISON: CT chest abdomen pelvis from 01/20/2021. TECHNIQUE: MRI of the abdomen and pelvis was performed prior to and following the uneventful administration of 20 mL Multihance intravenous gadolinium contrast according to an enterography protocol. The patient drank Citra Select prior to the study to distend the small bowel. Findings: Lower Chest: Normal. Gastrointestinal The patient is status post total proctocolectomy with creation of end ileostomy. 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 Small bowel distention: Satisfactory with intraluminal fluid to thelevel of the distal bowel. Obstruction: Nondilated without evidence of obstruction. Enhancement: No enhancing lesion of the bowel. Bowel wall: No bowel wall thickening or abnormal enhancement. Terminal ileum: Normal. Other: No bowel fistula, stricture, or abscess. Hepatobiliary system Liver: Normal size with smooth surface contour. No enhancing lesions. Steatosis: There is mild diffuse hepatic steatosis. Spleen: Normal. Splenic vein is occluded. There are peripancreatic collateral veins, similar to prior CT chest abdomen pelvis from01/20/2021 Gallbladder and bile ducts Gallbladder: Normal. Bile ducts: Nondilated. Retroperitoneum Pancreas: Normal. Adrenals: Normal. Kidneys: Scattered renal cysts bilaterally. Lymph nodes: No lymphadenopathy. Peritoneum: No free intraperitoneal fluid. Pelvic structures: The bladder is distended with fluid and appears normal. Uterus isabsent. No free pelvic fluid is identified. 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 No imaging signs of active small bowel inflammation. 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 The report was drafted by Alfonso Cruz MD (residential green building designer) I, Ace Hernández MD have personally reviewed and interpreted this examination/study. > Interpreting Provider: Ace Hernández MD on 08/11/2024 11:13 AM Prasanth Diaz MD MR ORDERABLES * CULTURE URINE (07/06/2024 3:15 PM SECURITY INTERN) Only the most recent of2 resultswithin the time period is included. Urine Culture Routine Final report [facility] INSURANCE BILL Comment: Performed at: [address] [place] [id number] Cnc Field Service Engineer: Dario Mchugh PhD, Phone: [phone] Result 1 No growth [facility] INSURANCE BILL 07/06/2024 3:15 PM SECURITY INTERN 07/06/2024 Comment:UR Narrative [facility] INSURANCE BILL - 07/08/2024 6:10 AM SECURITY INTERN Performed at: [address] [place] [id number] C[employer] Field Service Engineer: Dario Mchugh PhD, Phone: [phone] Specimen Comment: A courtesy copy of this report has been sent to [phone] Hemalatha Golden DEALER SALES REP-ASSOCIATE [employer] LAB - MICROBIOL OGY ORDERABLES [facility] INSURANCE BILL [address] [place] [address] * ND MSR PVR U&/BLADD CAPCTY US NON (06/29/2024 2:25 PM SECURITY INTERN) Narrative Dana Hair CMA - 06/29/2024 2:25 PM SECURITY INTERN Dnaa Hair CMA 07/05/2024 3:57 PM Bladder Scan performed on 06/29/2024: Results showinml Hemalatha Golden DEALER SALES REP-ASSOCIATE [employer] PROCEDURE/MINOR SURGICAL ORDERABLES * URINALYSIS AUTO - POINT OF CARE (AMB) [facility] (06/29/2024 2:23 PM SECURITY INTERN) Glucose UA neg Bilirubin UA POCT neg Ketones UA POCT +-5mg/dl Specific [place] UA 1.025 Blood Urine POCT 2+80ery/u l pH UA 6.0 Protein UA +-15mg/dl Urobilinogen UA 0.2mg/dl Nitrite UA neg WBC UA neg Urine URINE / Unknown 06/29/2024 2 :23 PM SECURITY INTERN Hemalatha Golden APRN-ASSOCIATE [employer] LAB - POINT OF CARE ORDERABLES * (ABNORMAL) URINALYSIS W/MICROSCOPIC NO CULTURE (06/29/2024) Color UA YELLOW YELLOW [facility] Appearance CLEAR CLEAR [facility] Specific [place] UA 1.023 1.001 - 1.035 [facility] pH UA 6.0 5.0 - 8.0 [facility] Glucose UA NEGATIVE NEGATIVE [facility] Bilirubin UA NEGATIVE NEGATIVE [facility] Ketone UA TRACE(A) NEGATIVE [facility] Blood UA TRACE(A) NEGATIVE [facility] Protein UA TRACE(A) NEGATIVE [facility] Nitrite UA NEGATIVE NEGATIVE [facility] Leukocyte UA NEGATIVE NEGATIVE [facility] WBC UA 0-5 < OR = 5 /HPF [facility] RBC UA 0-2 < OR = 2 /HPF [facility] Epithelial Cell UA 6-10(A) < OR = 5 /HPF [facility] Bacteria UA NONE SEEN NONE SEEN /HPF [facility] Calcium Oxalate Crystals FEW NONE OR FEW /HPF [facility] Hyaline Casts NONE SEEN NONE SEEN /LPF [facility] Note See Below [facility] Comment: This urine was analyzed for the presence of WBC, RBC, bacteria, casts, and other formed elements. Only those elements seen were reported. Test Performed at: [facility] [address] DEACON TAI MD 06/29/2024 06/30/2024 4:0 5 AM SECURITY INTERN Hemalatha Golden APRN-ASSOCIATE [employer] LAB - URINALYSI S ORDERABLES [facility] [address] [place] [address] * (ABNORMAL) COMPREHENSIVE METABOLIC PANEL (05/05/2024 11:38 AM [facility]) BUN 8 7 - 26 mg/dL 05/05/2024 12:37 PM [facility] Creatinine 0.88 0.56 - 0.96 mg/dL 05/05/2024 12:37 PM [facility] Sodium 142 136 - 145 mmol/L 05/05/2024 12:37 PM [facility] Potassium 4.3 3.5 - 4.5 mmol/L 05/05/2024 12:37 PM [facility] Chloride 108(H) 98 - 107 mmol/L 05/05/2024 12:37 PM [facility] CO2 26 22 - 29 mmol/L 05/05/2024 12:37 PM [facility] Glucose 106(H) 70 - 99 mg/dL 05/05/2024 12:37 PM [facility] Calcium 9.6 8.4 - 10.2 mg/dL 05/05/2024 12:37 PM [facility] Protein Total 8.1 6.0 - 8.3 g/dL 05/05/2024 12:37 PM [facility] Albumin 3.8 3.4 - 5.0 g/dL 05/05/2024 12:37 PM [facility] Bilirubin Total 1.4(H) 0.2 - 1.2 mg/dL 05/05/2024 12:37 PM [facility] Alkaline Phosphatase 90 40 - 150 U/L 05/05/2024 12:37 PM [facility] ALT 17 5 - 55 U/L 05/05/2024 12:37 PM [facility] AST 17 5 - 34 U/L 05/05/2024 12:37 PM [facility] Anion Gap 8 6 - 16 05/05/2024 12:37 PM [facility] BUN/Creatinine Ratio 9 7 - 23 05/05/2024 12:37 PM [facility] Osmolality Calculated 293 275 - 295 mOsm/kg 05/05/2024 12:37 PM [facility] Albumin/Globulin Ratio 0.9(L) 1.1 - 2.3 05/05/2024 12:37 PM SECURITY INTERN [facility] eGFR by CKD-EPI 82(L) >=90 mL/min/1.7 3 m2 05/05/2024 12:37 PM SECURITY INTERN [facility] Blood BLOOD SPECIMEN / Unknown Lab Venipuncture / Unknown 05/05/2024 11:38 AM SECURITY INTERN 05/05/2024 11:49 AM SECURITY INTERN Prasanth Diaz MD LAB - CHEMISTRY [facility] [address] [place] [address], [place] [phone] * HIV-1 HIV-2 ANTIBODY + HIV P24 AG PANEL (11/25/2020 5:43 AM CDT) HIV Antigen/Antibod y 1 & 2 Non-reacti ve Non-react hali 11/25/2020 8:11 AM CDT [facility] Comment:Neither HIV-1 p24 An tigen nor HIV-1/HIV-2 Antibodies are detected. Blood BLOOD SPECIMEN / Unknown Venipuncture / Unknown 11/25/2020 5:43 AM CDT 11/25/2020 6:08 AM CDT Damon Figueredo MD LAB - CHEMISTRY [facility] [address] [place] [address], [place] [phone] from Last 3 Months or Most Recently Relevant to Health Maintenance Advance Directives * Full Code (Latest Code Status on File) Date Activated Date Inactivated Comments 01/19/2024 4:14 PM 01/23/2024 1:40 PM * Full Code Date Activated Date Inactivated Comments 01/15/2021 8:28 PM 01/23/2021 12:14 PM Care Teams Optical Manufacturing Technician Relationship Specialty Start Date End Date Ijeoma Faria, DEALER SALES REP-ASSOCIATE [employer] [address] [facility] [address] [place] [address] PCP - General Nurse Practitioner 08/04/22 Jethro Curiel MD [address] [place] [address] Obstetrics and Gynecology 03/09/24 Kelly Ramírez MD [address] [place] [address] Surgeon General Surgery 03/09/24
--- OUTSIDE RECORDS SUMMARY | 2024-08-31 16:17 | XMS_ITS | Encounter Summary ---
Author Organization [facility] Address [address] [place] [address] Care Team Providers Care Workday Senior Associate Name Role Phone GianaIjeoma James SOFTWARE ENGINEERING PROJECT MANAGER-LEADED GLASS INSTALLER Primary Care Provider Jethro Curiel MD Unavailable Kelly Ramírez MD Unavailable [phone] Reason for Visit * Reason Onset Date Comments Confirmation 08/31/2024 Encounter Details Date Type Department Care Team (Late st Contact Info) Description 08/31/2024 Telephone Transitional Care at [address] [address] Alba Benjamin MA Confirmation Social History Tobacco Use Types Packs/Day Years [...] Recorded Patient Health Questionnaire-2 Score 0 05/05/2024 [facility] - Occupational Stress [...] place to sleep or slept in a snf (including now)? No 01/19/2024 Sex and Gender [...] No 01/19/2024 documented as of this encounter Miscellaneous Notes * Telephone Encounter - Alba Benjamin MA - 08/31/2024 7:26 AM CDT Patient confirmed BRIDGE appointment for 09/01/24 at 3:00 via the automated reminder system. documented in this encounter Plan of Treatment Upcoming Encounters Date Type Department Care Team (Late st Contact Info) Description 09/01/2024 3:00 PM CDT Office Visit Transitional Care at [facility] [address] [place] [phone] 09/07/2024 9:00 AM CDT Office Visit [facility] - Internal Medicine [address], [address] [phone] Ijeoma Faria, SOFTWARE ENGINEERING PROJECT MANAGER-LEADED GLASS INSTALLER [address] [phone] 11/16/2024 3:30 PM CDT Office Visit [facility] - GI [address] [facility], [place] [phone] Prasanth Diaz MD [address] [place] [address] 04/04/2025 11:30 AM CDT Office Visit [facility] - Urology [address] [facility] [address] [place] [phone] Hemalatha Golden, SOFTWARE ENGINEERING PROJECT MANAGER-LEADED GLASS INSTALLER [address] [place] [address] DE[place] [address] documented as of this encounter Goals Goal Patient Goal Type Associated Problems Recent Progress Patient-Stated? Author Safety General On track( 024 2:45 PM UNIFIED COMMUNICATIONS ENGINEER) Leia Dodge, RN Note: Expected end date: Ongoing Interventions: Your nurse will assess your risk for falls/injury each visit Use appropriate and safe transfer methods Medication Management General On track( 024 2:45 PM UNIFIED COMMUNICATIONS ENGINEER) Leia oDdge, RN Note: Expected end date: Ongoing Interventions: Take all medications as prescribed Let your doctor know right away about any changes in your medications documented as of this encounter Visit Diagnoses Not on filedocumented in this encounter Care Teams Workday Senior Associate Relationship Specialty Start Date End Date Ijeoma Faria, SOFTWARE ENGINEERING PROJECT MANAGER-LEADED GLASS INSTALLER [address] [facility] [address] [place] [phone] PCP - General Nurse Practitioner 08/04/22 Jethro Curiel MD [address] [facility] [address] [place] [address] Obstetrics and Gynecology 03/09/24 Kelly Ramírez MD [address] [facility] [address] [place] [address] Surgeon General Surgery 03/09/24 documented as of this encounter
--- OUTSIDE RECORDS SUMMARY | 2024-08-31 16:17 | XMS_ITS | CONTINUITY OF CARE DOCUMENT ---
Author Name aris hurst Address Unknown Organization [facility] Address [address] [facility] [address] [place] [address] Phone [phone] Care Team Providers Care Jack Spinner Name Role Phone Mynor Ann MD Unavailable Mynor Ann MD Unavailable [phone] INSURANCE PROVIDERS Payer name Policy type / Coverage type [place] red green party ID [place] MEDICAID (2) Medicaid [id number]
--- OUTSIDE RECORDS SUMMARY | 2024-08-31 16:17 | XMS_ITS | Continuity of Care Document ---
Author Organization [facility] Address [address] [place] [address] [address] [place] [address] Phone Care Team Providers Care Open End Spinning Operator Name Role Phone Inessa Us Unavailable Unavailable Procedures Procedure Date Eye Exam & Treatment Refraction Eye Exam, New Patient Advance Directives Directive Yes / No Effective Date File Name No Information Encounters Encounter Description Practice Location Reason(s) For Visit Diagnoses Date Provider Providers Copied on Encounter [facility], [address] [place] [address] [address], [place], [place], [id number], tel:[phone] SEC [facility] Corporate Anthony No Information 0-200 8 Abeba Wylie. [address] [facility] [address] , [address], [place], [address], [place]. tel:[phone] [facility], [address] [place] [address] [address], [place], [place], [id number], tel:[phone] SEC [facility] No Information 4-200 7 Abeba Ferrell [address] [facility] , [address], [place], [address], [place]. tel:[phone] Family History Family Member Type Diagnosis Age At Onset No Information Payers Payer name Insurance type Covered green party ID Authoriza tiscott(s) Medicaid [facility] [id number] Social History Type Description Quantity Date Captured Comments Sex Female Smoking Status No Information Chief Complaint And Reason For Visit No Information Reason For Referral Reason For Referral No Information History Of Present Illness Encounter Date Complaint History Of Prese nt Illness No Information Functional Status Date Functional Assessmen t No Information Instructions Date Instruction Additional Infor mation No Information Assessments Type Assessment Date No Information Patient Care Teams Name Effective Dates (start - stop) Status Members No Information
--- OUTSIDE RECORDS SUMMARY | 2024-08-31 16:17 | XMS_ITS | Encounter Summary ---
Author Organization [facility] Address [address] [place] [address] Care Team Providers Care Apartment Leasing Consultant Name Role Phone GianaIjeoma James CERTIFIED SUBSTANCE ABUSE COUNSELOR-TRAY LINE SUPERVISOR Primary Care Provider Jethro Curiel MD Unavailable Kelly Ramírez MD Unavailable [phone] Reason for Visit * Reason Comments Establish Care INCOMPLETE EMPTYING Encounter Details Date Type Department Care Team (Late st Contact Info) Description 08/30/2024 11:30 AM CDT Office Visit [facility] - Urology [address] [place] [address] [address] [place] [phone] Hemalatha Golden, CERTIFIED SUBSTANCE ABUSE COUNSELOR-TRAY LINE SUPERVISOR [address] [facility] DEPT [place] [address] Incomplete emptying of bladder (Primary Dx) Social History Tobacco Use Types Packs/Day Years [...] Recorded Patient Health Questionnaire-2 Score 0 05/05/2024 [facility] [place] [facility] Health - Occupational Stress [...] place to sleep or slept in a residential (including now)? No 01/19/2024 Sex and Gender Information Value Date Recorded Sex Assigned at Not on file Gender Identity Not on file Sexual Orientation Not on file documented as of this encounter Last Filed Vital Signs Vital Sign Reading [...] Mass Index 36.18 08/30/2024 11:21 AM CDT documented in this encounter Functional Status Functional Status Response [...] No 01/19/2024 documented as of this encounter Progress Notes * Hemalatha Golden APRN-CNP - 08/30/2024 11:40 AM CDT [facility] Division of Urologic Surgery PRINCE Fernando Date of Visit: 08/30/2024 Patient Name: Susan Crews : 1975 Medical Record: [id number] Contact (home) [phone] (work) Age: [age] year old Sex: female Referring Physician: Kelly Ramírez MD [facility] [address] Chief Complaint: Chief Complaint Patient presents with Count Includes [facility] Care INCOMPLETE EMPTYING History of Present Illness: The patient is a 48 year old AA female for new evaluation and treatment of urinary retention. She had surgery with Dr. Lo 01/2024 and feels she has had urinary issues since. She has been having issues emptying her bladder. In the morning she will wake up with a full bladder but have to walk around before she can empty. Throughout the day she empties well but some times feels she does not empty completely and will feel full. She has an ileostomy. She denies recurrent UTIs. No incontinence. TODAY 08/30/24 Insurance would not cover PFPT so she was not able to attend. She feels she is doing much better and feels her bladder is emptying well. Taking flomax. No urology complaints today Past Medical History; Past Medical History: Diagnosis Date Asthma Crohn disease Migraines Sinus infection Past Surgical History: Past Surgical History: Procedure Laterality Date COLECTOMY, LAPAROSCOPIC N/A 01/19/2024 N/A; robotic possible open lysis of adhesions, completion proctectomy, intersphinceric dissection; VAGINAL REPAIR COLECTOMY, TOTAL ABDOMINAL N/A 01/15/2021 N/A; open total proctocoletomy COLONOSCOPY N/A 09/16/2017 N/A; COLONOSCOPY DIAGNOSTIC WITH ILEOSCOPY CYSTOSCOPY Bilateral 01/15/2021 Bilateral; cystoscopy, bilateral ureteral stents ENDOSCOPY, COLON, DIAGNOSTIC ENDOSCOPY, UPPER N/A 08/13/2023 N/A; EGD HX FRACTURE TX right 5th toe HYSTERECTOMY, TOTAL LAPAROSCOPIC Bilateral 01/15/2021 Bilateral; total hysterectomy, bilateral salpingo-oophorectomy, [place] CLOSE ENTEROSTOMY SIGMOIDOSCOPY N/A 08/13/2023 N/A; Ileoscopy and sigmoidoscopy w/ shmais Current Medications: Current Outpatient Medications Medication Sig Dispense Refill acetaminophen (TYLENOL) 325 MG tablet Take 2 (two) tablets by mouth every 4 hours as needed for Fever or Pain Maximum allowable Acetaminophen amount = 4 Grams (4000 mg) / 24 hours. 100 tablet 0 adalimumab (Humira, 2 Pen,) 40 MG/0.4ML injection Inject 0.4 mL subcutaneously every 7 days Reasons: Crohn's Disease 4 kit 6 albuterol HFA (Proventil; Ventolin; Proair) 108 (90 Base) MCG/ACT inhaler Inhale 2 puffs by mouth every 4 hours as needed for shortness of breath or wheezing 18 g 3 atorvastatin (Lipitor) 20 MG tablet Take 1 (one) tablet by mouth once daily 90 tablet 4 Calcium Carb-Cholecalciferol (Calcium/Vitamin D) 600-400 MG-UNIT TABS TAKE ONE TABLET BY MOUTH TWICE DAILY FOR VITAMIN DEFICIANCY 60 tablet 11 cyanocobalamin (Vitamin B-12) 1000 MCG tablet Take 1 (one) tablet by mouth every 2 days 45 tablet 5 ferrous sulfate (FeroSul) 325 (65 FE) MG tablet Take 1 (one) tablet by mouth daily with breakfast 30 tablet 5 folic acid (Folvite) 1 MG tablet Take 1 (one) tablet by mouth once daily 90 tablet 3 methotrexate 2.5 MG tablet Take 6 (six) tablets by mouth every 7 days 24 tablet 3 metoprolol succinate XL 24hr (Toprol XL) 50 MG tablet Take 1 (one) tablet by mouth once daily for blood pressure metoprolol tartrate IR (Lopressor) 25 MG tablet TAKE ONE TABLET DAILY FOR BLOOD PRESSURE 30 tablet 1 montelukast (Singulair) 10 MG tablet TAKE ONE TABLET BY MOUTH EVERY NIGHT AT BEDTIME FOR BREATHING 90 tablet 0 nortriptyline (Pamelor) 25 MG capsule TAKE ONE CAPSULE BY MOUTH EVERY NIGHT AT BEDTIME 30 capsule 5 pantoprazole EC (Protonix) 40 MG tablet Take 1 (one) tablet by mouth once daily 90 tablet 3 potassium chloride ER (Klor-Con M) 20 MEQ tablet TAKE ONE TABLET BY MOUTH TWICE DAILY EVERY MORNING& EVENING YOU CAN DISSOLVE TABLET IN WATER AND DRINK 60 tablet 5 tamsulosin (Flomax) 0.4 MG capsule Take 1 (one) capsule by mouth once daily At the same time every day after a meal. 90 capsule 4 No current facility-administered medications for this visit. Allergies; Contrast-iodinated agents for ct/other, Povidone iodine, and Imuran [azathioprine] Family History: Family History Problem Relation Name Age of Onset Ulcerative Colitis Sister confined to rectum; Status: Alive Ulcerative Colitis Maternal Aunt Recurrent C Diff; Status: Alive Cancer - Pancreatic Maternal Aunt Seizures Mother Status: Alive Hypertension Mother Cancer - Skin, Melanoma Mother Diabetes Father Status: Alive None Known Brother 1/2 brother Status: Alive Cancer - Breast Paternal Aunt Asthma Neg Hx Eczema Neg Hx Cancer - Other Neg Hx CVA Neg Hx Hemophilia Neg Hx Psoriasis Neg Hx Cancer - Skin, Non Melanoma Neg Hx Social History: Social History Socioeconomic History Marital status: Single Spouse name: Not on file Number of children: Not on file Years of education: Not on file Highest education level: Not on file Occupational History Not on file Tobacco Use Smoking status: Never Smokeless tobacco: Never Vaping Use Vaping status: Never Used Substance and Sexual Activity Alcohol use: No Drug use: No Sexual activity: Not Currently Other Topics Concern Not on file Social History Narrative Not on file Social Determinants of Health Financial Resource Strain: Low Risk (01/19/2024) Overall Financial Resource Strain (CARDIA) Difficulty of Paying Living Expenses: Not hard at all Food Insecurity: No Food Insecurity (01/19/2024) Hunger Vital Sign Worried About Running Out of Food in the Last Year: Never true Ran Out of Food in the Last Year: Never true Transportation Needs: No Transportation Needs (01/19/2024) PRAPARE - Transportation Lack of Transportation (Medical): No Lack of Transportation (Non-Medical): No Stress: No Stress Concern Present (01/19/2024) [facility] [place] [facility] - Occupational Stress Questionnaire Feeling of Stress : Not at all Housing Stability: Low Risk (01/19/2024) Housing Stability Vital Sign Unable to Pay for Housing in the Last Year: No Number of Places Lived in the Last Year: 1 Unstable Housing in the Last Year: No Review of Systems: General: Negative Skin: Negative Eyes: Negative Ears/nose/mouth: Negative Lungs:Negative Heart:Negative Gastrointestinal: negative Genitourinary: See HPI Musculoskeletal: Negative Nervous system: Negative Reproductive system: Negative Hematologic: Negative Lymphatic: Negative Endocrine: Negative Physical Exam: Gen: Alert and oriented x3 Head: normocephalic Lungs: Non-labored respirations Heart: RRR Abd: soft, nontender, nondistended : no CVA tenderness, no suprapubic pain MSK: normal gait and strength Skin: No rashes Vital Signs: BP 120/81 (BP Location: Left arm, Patient Position: Sitting, BP Cuff Size: Adult) Pulse 94 Temp97.9 ??F (36.6 ??C) (Temporal) Resp 17 Ht 1.753 m (5' 9 ) Wt 111.1 kg (245 lb) SpO2 94% PVR per bladder scanner: 46ml Imaging (images and reports reviewed): Laboratory Studies: No results found for this visit on 08/30/24. Microbiology: Pathology: Diagnosis: Sensation of incomplete emptying Recommendations: - can continue flomax she feels this has been helpful and does not want to trial off of it. Follow up in 6 months and will consider trial off at that time 20 minutes were spent with patient. >50% were spent counseling patient. Patient's questions were answered and patient agrees with plan. PRINCE Fernando 08/30/2024 11:40 AM documented in this encounter Procedure Notes * Dana Hair CMA - 08/30/2024 11:32 AM CDTAssociated Order(s): PROC BLADDER SCAN Procedure(s): VA MSR PVR U&/BLADD CAPCTY US NON Pre-Procedure Diagnose(s): Incomplete emptying of bladder Bladder Scan performed on 08/30/2024: Results showinml Electronically signed by Hemalatha Golden, CERTIFIED SUBSTANCE ABUSE COUNSELOR-TRAY LINE SUPERVISOR at 08/30/2024 12:28 PM CDT documented in this encounter Plan of Treatment Upcoming Encounters Date Type Department Care Team (Late st Contact Info) Description 09/01/2024 3:00 PM CDT Office Visit Transitional Care at [facility] [address] [place] [phone] 09/07/2024 9:00 AM CDT Office Visit [facility] - Internal Medicine [address], [address] [phone] Ijeoma Faria, CERTIFIED SUBSTANCE ABUSE COUNSELOR-TRAY LINE SUPERVISOR [address] [phone] 11/16/2024 3:30 PM CDT Office Visit [facility] - GI [address] [facility], [place] [phone] Prasanth Diaz MD [address] [place] [phone] 04/04/2025 11:30 AM CDT Office Visit [facility] - Urology [address] [facility] [address] [place] [address] Hemalatha Golden, CERTIFIED SUBSTANCE ABUSE COUNSELOR-TRAY LINE SUPERVISOR [address] [place] [address] DEPT [place] [address] documented as of this encounter Goals Goal Patient Goal Type Associated Problems Recent Progress Patient-Stated? Author Safety General On track( 024 2:45 PM NEWSCAST DIRECTOR) Leia Dodge, MEAGAN Note: Expected end date: Ongoing Interventions: Your nurse will assess your risk for falls/injury each visit Use appropriate and safe transfer methods Medication Management General On track( 024 2:45 PM NEWSCAST DIRECTOR) Leia Dodge, RN Note: Expected end date: Ongoing Interventions: Take all medications as prescribed Let your doctor know right away about any changes in your medications documented as of this encounter Procedures Procedure Name Priority Date/Time Associated Diagnosis Comments VA MSR PVR U&/BLADD CAPCTY US NON Routine 08/30/2024 11:32 AM CDT Incomplete emptying of bladder documented in this encounter Results * VA MSR PVR U&/BLADD CAPCTY US NON (08/30/2024 11:32 AM CDT) Narrative Hemalatha Golden APRN-CNP - 08/30/2024 11:32 AM CDT Hemalatha Golden APRN-CNP 08/30/2024 12:28 PM Bladder Scan performed on 08/30/2024: Results showinml Hemalatha MORRISON PROCEDURE/MINOR SURGICAL ORDERABLES documented in this encounter Visit Diagnoses Diagnosis Incomplete emptying of bladder- Primary Incomplete bladder emptying documented in this encounter Care Teams Apartment Leasing Consultant Relationship Specialty Start Date End Date Ijeoma Faria APRN-CNP [address] [phone] PCP - General Nurse Practitioner 08/04/22 Jethro Curiel MD [address] [facility] [address] [place] [address] Obstetrics and Gynecology 03/09/24 Kelly Ramírez MD [address] [facility] [address] [place] [address] Surgeon General Surgery 03/09/24 documented as of this encounter
== END 2024-08-31 15:34 | disposition home or self-care (01) ==
PROVIDERS: PCP Internal Medicine; Visit Provider Obstetrics & Gynecology
DX: Z12.31 Encounter for screening mammogram for malignant neoplasm of breast (principal)
CPT/HCPCS: 77063; 77067